=== PATIENT | male | born 1975 | race African-American/Black ===

== ENCOUNTER 2021-01-22 12:43 | Inpatient (IN) | payer OTHER ==
[2021-01-22] MEDS ORDERED: Diltiazem 125 MG/25 ML ONE (13:28)
[2021-01-22 13:37] LABS: #Basophils 0.1 10x3/uL (0.0-0.2); #Monocytes 1.4 10x3/uL (0.0-1.1); #Neutrophils 9.2 10x3/uL (1.5-8.4); %Basophils 0.4 % (0.0-2.0); %Eosinophils 0.3 % (0.0-6.0); %Lymphocytes 16.2 % (18.0-47.0); %Monocytes 10.9 % (0.0-10.0); %Neutrophils 71.8 % (40.0-75.0); Hemoglobin 14.3 g/dL (13.5-17.5); Mean Corpuscular HGB CONC 34.2 g/dL (32.0-36.0); Mean Corpuscular Hemoglobin 32.2 pg (27.0-33.0); Mean Corpuscular Volume 94.1 fl (81.2-95.1); Mean Platelet Volume 11.1 fl (7.4-10.4); Platelet Count 235 10x3/uL (150-450); RBC Distribution Width 14.2 % (11.5-14.5); Red Blood Cell (RBC) Count 4.44 10x6/uL (4.32-5.72); White Blood Cell (WBC) Count 12.8 10x3/uL (3.5-10.5)
[2021-01-22 13:46] LABS: ALT (SGPT) 186 U/L (8-55); AST (SGOT) 231 U/L (5-34); Albumin 4.1 g/dL (3.5-5.0); Alkaline Phosphatase 80 U/L (40-110); Anion Gap 17 mmol/L (10-20); BUN (Urea Nitrogen) 25 mg/dL (8.9-20.6); Bilirubin, Total 2.5 mg/dL (0.2-1.2); Calc. Creatinine Clearance 0 mL/min (70-130); Calcium 9.5 mg/dL (7.8-10.44); Carbon Dioxide 21 mmol/L (22-29); Chloride 101 mmol/L (98-107); Globulin 3.4 g/dL (2.4-3.5); Glucose 116 mg/dL (70-105); Potassium 5.2 mmol/L (3.5-5.1); Protein, Total 7.5 g/dL (6.0-8.3); Sodium 134 mmol/L (136-145)
[2021-01-22] MEDS ORDERED: Loperamide HCl 2 MG CAP PO PRN (15:33)
[2021-01-22] MEDS ORDERED: Calcium Carbonate 500 MG ChewTAB PO PRN (15:33)
[2021-01-22] MEDS ORDERED: Acetaminophen 325 MG TAB PO PRN (15:33)
[2021-01-22] MEDS ORDERED: Lidocaine Viscous Sol 2% 15 ml UD Cup ONE (16:09)
[2021-01-22] MEDS ORDERED: Mag-Al Plus 1200 MG/1200 MG/120 MG/30 ML UDCUP ONE (16:09)
[2021-01-22 18:45] LABS: SARS-CoV-2 NAA Rapid Test Not Detected (NotDetected)
[2021-01-22] MEDS ORDERED: Metoclopramide HCl 10 MG/2 ML VIAL IVP SCH (20:15)
[2021-01-22] MEDS: Metoprolol Tartrate 25 MG TAB PO SCH (20:19)
[2021-01-22] MEDS: Apixaban 5 MG TAB PO SCH (20:19)
[2021-01-22] MEDS: Famotidine/PF 20 mg/2ml Vial SLOW IVP SCH (20:19)
[2021-01-22] MEDS ORDERED: Furosemide 40 MG/4 ML VIAL SLOW IVP SCH (20:30)
[2021-01-22] MEDS: Dronedarone HCl 400 MG TAB PO SCH (20:38)
[2021-01-23] MEDS: Diltiazem 125 MG in Sodium Chloride 0.9% 100 ML IVPB SCH ×2 (02:02→11:24)
[2021-01-23 04:18] LABS: #Basophils 0.1 10x3/uL (0.0-0.2); #Eosinphils 0.1 10x3/uL (0.0-0.5); #Monocytes 1.7 10x3/uL (0.0-1.1); #Neutrophils 10.3 10x3/uL (1.5-8.4); %Basophils 0.4 % (0.0-2.0); %Eosinophils 0.4 % (0.0-6.0); %Lymphocytes 14.7 % (18.0-47.0); %Monocytes 11.6 % (0.0-10.0); %Neutrophils 72.4 % (40.0-75.0); Hemoglobin 13.8 g/dL (13.5-17.5); Mean Corpuscular HGB CONC 33.5 g/dL (32.0-36.0); Mean Corpuscular Hemoglobin 31.6 pg (27.0-33.0); Mean Corpuscular Volume 94.3 fl (81.2-95.1); Mean Platelet Volume 11.7 fl (7.4-10.4); Platelet Count 247 10x3/uL (150-450); RBC Distribution Width 14.2 % (11.5-14.5); Red Blood Cell (RBC) Count 4.37 10x6/uL (4.32-5.72); White Blood Cell (WBC) Count 14.3 10x3/uL (3.5-10.5)
[2021-01-23 04:34] LABS: ALT (SGPT) 252 U/L (8-55); AST (SGOT) 323 U/L (5-34); Albumin 3.9 g/dL (3.5-5.0); Alkaline Phosphatase 77 U/L (40-110); Anion Gap 18 mmol/L (10-20); BUN (Urea Nitrogen) 28 mg/dL (8.9-20.6); Bilirubin, Total 2.4 mg/dL (0.2-1.2); Calc. Creatinine Clearance 132 mL/min (70-130); Calcium 8.7 mg/dL (7.8-10.44); Carbon Dioxide 20 mmol/L (22-29); Chloride 100 mmol/L (98-107); Globulin 2.8 g/dL (2.4-3.5); Glucose 148 mg/dL (70-105); Lipase 25 U/L (8-78); Magnesium 1.7 mg/dL (1.6-2.6); Potassium 4.7 mmol/L (3.5-5.1); Protein, Total 6.7 g/dL (6.0-8.3); Sodium 133 mmol/L (136-145)
[2021-01-23] MEDS: Ondansetron PF 4 MG/2 ML Vial IVP PRN (04:45)
[2021-01-23] MEDS: Furosemide 40 MG/4 ML VIAL SLOW IVP SCH ×2 (07:46→18:19)
[2021-01-23] MEDS: Apixaban 5 MG TAB PO SCH ×2 (08:32→20:12)
[2021-01-23] MEDS: Aspirin 81 mg Enteric Coated Tablet PO SCH (08:32)
[2021-01-23] MEDS: Dronedarone HCl 400 MG TAB PO SCH ×2 (08:32→18:19)
[2021-01-23] MEDS: Famotidine/PF 20 mg/2ml Vial SLOW IVP SCH ×2 (08:32→20:12)
[2021-01-23] MEDS: Multivit, Therapeutic 1 TAB PO SCH (08:32)
[2021-01-23] MEDS: Metoprolol Tartrate 25 MG TAB PO SCH ×2 (08:34→20:12)
[2021-01-23] MEDS ORDERED: PROPOFOL 60 ML ONE (15:35)
[2021-01-23] MEDS ORDERED: Morphine 2 MG/ML VIAL SLOW IVP PRN (20:37)
[2021-01-23] MEDS ORDERED: Morphine 4 MG/ML VIAL SLOW IVP PRN (20:58)
[2021-01-24 03:42] LABS: #Basophils 0.1 10x3/uL (0.0-0.2); #Eosinphils 0.1 10x3/uL (0.0-0.5); #Monocytes 1.6 10x3/uL (0.0-1.1); #Neutrophils 9.6 10x3/uL (1.5-8.4); %Basophils 0.4 % (0.0-2.0); %Eosinophils 0.7 % (0.0-6.0); %Monocytes 12.1 % (0.0-10.0); %Neutrophils 71.4 % (40.0-75.0); Hemoglobin 13.6 g/dL (13.5-17.5); Mean Corpuscular HGB CONC 34.7 g/dL (32.0-36.0); Mean Corpuscular Volume 92.2 fl (81.2-95.1); Mean Platelet Volume 10.7 fl (7.4-10.4); Platelet Count 221 10x3/uL (150-450); RBC Distribution Width 14.1 % (11.5-14.5); Red Blood Cell (RBC) Count 4.25 10x6/uL (4.32-5.72); White Blood Cell (WBC) Count 13.5 10x3/uL (3.5-10.5)
[2021-01-24 03:55] LABS: Anion Gap 17 mmol/L (10-20); BUN (Urea Nitrogen) 32 mg/dL (8.9-20.6); Calc. Creatinine Clearance 133 mL/min (70-130); Calcium 8.5 mg/dL (7.8-10.44); Carbon Dioxide 22 mmol/L (22-29); Chloride 97 mmol/L (98-107); Glucose 116 mg/dL (70-105); Magnesium 1.9 mg/dL (1.6-2.6); Potassium 4.1 mmol/L (3.5-5.1); Sodium 132 mmol/L (136-145)
[2021-01-24] MEDS: Furosemide 40 MG/4 ML VIAL SLOW IVP SCH ×2 (05:03→12:47)
[2021-01-24] MEDS: Famotidine/PF 20 mg/2ml Vial SLOW IVP SCH ×2 (08:00→20:11)
[2021-01-24] MEDS: Apixaban 5 MG TAB PO SCH ×2 (08:02→20:11)
[2021-01-24] MEDS: Aspirin 81 mg Enteric Coated Tablet PO SCH (08:02)
[2021-01-24] MEDS: Metoprolol Tartrate 25 MG TAB PO SCH ×2 (08:02→20:11)
[2021-01-24] MEDS: Dronedarone HCl 400 MG TAB PO SCH ×2 (08:02→16:23)
[2021-01-24] MEDS: Multivit, Therapeutic 1 TAB PO SCH (08:02)
[2021-01-24] MEDS ORDERED: FLU VACC QS2021-22(6MOS UP)/PF 60 MCG/0.5 ML SYRINGE IM ONE (09:00)
[2021-01-24] MEDS ORDERED: Digoxin 0.25 MG TAB PO SCH (13:45)
[2021-01-24] MEDS: Digoxin 0.5 MG/2 ML AMP SLOW IVP SCH ×3 (13:57→15:56)
[2021-01-24] MEDS: Digoxin 0.25 MG TAB PO SCH ×2 (13:58→13:59)
[2021-01-24] MEDS: Ondansetron PF 4 MG/2 ML Vial IVP PRN (15:56)
[2021-01-25 05:10] LABS: #Eosinphils 0.3 10x3/uL (0.0-0.5); #Monocytes 1.7 10x3/uL (0.0-1.1); #Neutrophils 7.2 10x3/uL (1.5-8.4); %Basophils 0.4 % (0.0-2.0); %Eosinophils 2.9 % (0.0-6.0); %Lymphocytes 16.1 % (18.0-47.0); Hemoglobin 13.6 g/dL (13.5-17.5); Mean Corpuscular HGB CONC 33.4 g/dL (32.0-36.0); Mean Corpuscular Hemoglobin 31.9 pg (27.0-33.0); Mean Corpuscular Volume 95.5 fl (81.2-95.1); Mean Platelet Volume 11.2 fl (7.4-10.4); Platelet Count 216 10x3/uL (150-450); RBC Distribution Width 14.3 % (11.5-14.5); Red Blood Cell (RBC) Count 4.26 10x6/uL (4.32-5.72); White Blood Cell (WBC) Count 11.1 10x3/uL (3.5-10.5)
[2021-01-25 05:31] LABS: ALT (SGPT) 314 U/L (8-55); AST (SGOT) 195 U/L (5-34); Albumin 3.7 g/dL (3.5-5.0); Alkaline Phosphatase 67 U/L (40-110); Anion Gap 19 mmol/L (10-20); BUN (Urea Nitrogen) 22 mg/dL (8.9-20.6); Bilirubin, Total 2.8 mg/dL (0.2-1.2); Calc. Creatinine Clearance 158 mL/min (70-130); Calcium 8.4 mg/dL (7.8-10.44); Carbon Dioxide 23 mmol/L (22-29); Chloride 96 mmol/L (98-107); Globulin 2.9 g/dL (2.4-3.5); Glucose 78 mg/dL (70-105); Magnesium 2.1 mg/dL (1.6-2.6); Protein, Total 6.6 g/dL (6.0-8.3); Sodium 134 mmol/L (136-145)
[2021-01-25 05:40] VITALS: BMI 32.9
[2021-01-25] MEDS: Furosemide 40 MG/4 ML VIAL SLOW IVP SCH ×2 (05:55→12:49)
[2021-01-25] MEDS: Famotidine/PF 20 mg/2ml Vial SLOW IVP SCH (08:08)
[2021-01-25] MEDS: Dronedarone HCl 400 MG TAB PO SCH (08:08)
[2021-01-25] MEDS: Multivit, Therapeutic 1 TAB PO SCH (08:09)
[2021-01-25] MEDS: Aspirin 81 mg Enteric Coated Tablet PO SCH (08:09)
[2021-01-25] MEDS: Apixaban 5 MG TAB PO SCH (08:09)
[2021-01-25] MEDS: Metoprolol Tartrate 25 MG TAB PO SCH (08:09)
[2021-01-25] MEDS: Digoxin 0.25 MG TAB PO SCH (08:09)
[2021-01-25 12:47] VITALS: TEMP 98.3
[2021-01-25 16:20] VITALS: BP 101/72
== END 2021-01-25 17:11 | disposition home or self-care (01) | DRG 308 ==
LOC: SUATTDRO 12:43 → CSHERS 12:43 → CSHICU 19:22
PROVIDERS: ADMIT Student in an Organized Health Care Education/Training Program; ATTEND Student in an Organized Health Care Education/Training Program
PROC: B245ZZ4 Ultrasonography of Left Heart, Transesophageal (ICD-10-PCS; principal; 2021-01-23)
PROC: 5A2204Z Restoration of Cardiac Rhythm, Single (ICD-10-PCS; 2021-01-23)
DX: I48.0 Paroxysmal atrial fibrillation (principal); I50.33 Acute on chronic diastolic (congestive) heart failure; N17.9 Acute kidney failure, unspecified; E78.5 Hyperlipidemia, unspecified; I34.0 Nonrheumatic mitral (valve) insufficiency; R74.01 Elevation of levels of liver transaminase levels; E87.5 Hyperkalemia; Z20.822 Contact with and (suspected) exposure to COVID-19; F19.10 Other psychoactive substance abuse, uncomplicated; F17.210 Nicotine dependence, cigarettes, uncomplicated; I34.1 Nonrheumatic mitral (valve) prolapse; I11.0 Hypertensive heart disease with heart failure
CPT/HCPCS: 36415; 71045; 76705; 80048; 80053; 83690; 83735; 83880; 84484; 85025; 92960; 93005; 93010; 93312; 94760; 96365; 96366; J1160; J1940; J2270; J2405; J2704; J2765; J3490; S0028; U0002

== ENCOUNTER 2021-02-09 10:22 | Inpatient (IN) | payer OTHER ==
[2021-02-09 11:12] LABS: #Basophils 0.1 10x3/uL (0.0-0.2); #Eosinphils 0.2 10x3/uL (0.0-0.5); #Monocytes 1.3 10x3/uL (0.0-1.1); #Neutrophils 7.6 10x3/uL (1.5-8.4); %Basophils 0.5 % (0.0-2.0); %Eosinophils 1.9 % (0.0-6.0); %Lymphocytes 15.8 % (18.0-47.0); %Monocytes 11.8 % (0.0-10.0); %Neutrophils 69.6 % (40.0-75.0); Hemoglobin 13.3 g/dL (13.5-17.5); Mean Corpuscular HGB CONC 34.1 g/dL (32.0-36.0); Mean Corpuscular Hemoglobin 32.2 pg (27.0-33.0); Mean Corpuscular Volume 94.4 fl (81.2-95.1); Mean Platelet Volume 10.7 fl (7.4-10.4); Platelet Count 256 10x3/uL (150-450); RBC Distribution Width 14.9 % (11.5-14.5); Red Blood Cell (RBC) Count 4.13 10x6/uL (4.32-5.72); White Blood Cell (WBC) Count 10.9 10x3/uL (3.5-10.5)
[2021-02-09] MEDS ORDERED: Metoprolol Tartrate 25 MG TAB ONE (11:15)
[2021-02-09] MEDS ORDERED: Metoprolol Tartrate 5 MG/5 ML VIAL ONE (11:15)
[2021-02-09 11:27] LABS: ALT (SGPT) 24 U/L (8-55); AST (SGOT) 21 U/L (5-34); Albumin 3.8 g/dL (3.5-5.0); Alkaline Phosphatase 68 U/L (40-110); Anion Gap 15 mmol/L (10-20); BUN (Urea Nitrogen) 14 mg/dL (8.9-20.6); Calc. Creatinine Clearance 0 mL/min (70-130); Calcium 9.4 mg/dL (7.8-10.44); Carbon Dioxide 22 mmol/L (22-29); Chloride 103 mmol/L (98-107); Digoxin 0.36 ng/mL (0.8-2.0); Globulin 3.4 g/dL (2.4-3.5); Glucose 111 mg/dL (70-105); Lipase 31 U/L (8-78); Protein, Total 7.2 g/dL (6.0-8.3); Sodium 136 mmol/L (136-145)
[2021-02-09] MEDS ORDERED: Diltiazem 125 MG/25 ML ONE (13:36)
[2021-02-09] MEDS ORDERED: Ondansetron PF 4 MG/2 ML Vial ONE (14:29)
[2021-02-09] MEDS ORDERED: Ondansetron ODT 4 MG TAB PO PRN (15:01)
[2021-02-10] MEDS: Diltiazem 125 MG in Sodium Chloride 0.9% 100 ML IVPB SCH (04:14)
[2021-02-10 04:31] LABS: #Basophils 0.1 10x3/uL (0.0-0.2); #Eosinphils 0.2 10x3/uL (0.0-0.5); #Monocytes 1.2 10x3/uL (0.0-1.1); %Basophils 0.6 % (0.0-2.0); %Eosinophils 1.7 % (0.0-6.0); %Lymphocytes 18.1 % (18.0-47.0); %Monocytes 10.6 % (0.0-10.0); %Neutrophils 68.4 % (40.0-75.0); Hemoglobin 12.9 g/dL (13.5-17.5); Mean Corpuscular HGB CONC 33.2 g/dL (32.0-36.0); Mean Corpuscular Hemoglobin 32.1 pg (27.0-33.0); Mean Corpuscular Volume 96.8 fl (81.2-95.1); Mean Platelet Volume 11.2 fl (7.4-10.4); Platelet Count 240 10x3/uL (150-450); RBC Distribution Width 15.1 % (11.5-14.5); Red Blood Cell (RBC) Count 4.02 10x6/uL (4.32-5.72); White Blood Cell (WBC) Count 11.7 10x3/uL (3.5-10.5)
[2021-02-10 04:54] LABS: Anion Gap 19 mmol/L (10-20); BUN (Urea Nitrogen) 18 mg/dL (8.9-20.6); Calc. Creatinine Clearance 192 mL/min (70-130); Carbon Dioxide 19 mmol/L (22-29); Chloride 103 mmol/L (98-107); Glucose 89 mg/dL (70-105); Magnesium 1.8 mg/dL (1.6-2.6); Potassium 4.7 mmol/L (3.5-5.1); Sodium 136 mmol/L (136-145)
[2021-02-10] MEDS: Furosemide 40 MG/4 ML VIAL SLOW IVP SCH ×2 (06:32→14:49)
[2021-02-10] MEDS ORDERED: Magnesium 2 GM/50 ML 2 GM in Premix Bag 1 BAG IVPB SCH (12:00)
[2021-02-10 13:53] LABS: SARS-CoV-2 PCR by NAA Not Detected (NotDetected)
[2021-02-10] MEDS: Metoprolol Tartrate 25 MG TAB PO SCH (22:01)
[2021-02-10] MEDS: Apixaban 5 MG TAB PO SCH (22:01)
[2021-02-11] MEDS: Diltiazem 125 MG in Sodium Chloride 0.9% 100 ML IVPB SCH (00:11)
[2021-02-11] MEDS ORDERED: Acetaminophen 325 MG TAB PO SCH (00:45)
[2021-02-11 05:20] LABS: #Basophils 0.1 10x3/uL (0.0-0.2); #Eosinphils 0.3 10x3/uL (0.0-0.5); #Monocytes 1.3 10x3/uL (0.0-1.1); #Neutrophils 7.9 10x3/uL (1.5-8.4); %Basophils 0.5 % (0.0-2.0); %Eosinophils 2.8 % (0.0-6.0); %Lymphocytes 13.7 % (18.0-47.0); %Monocytes 11.6 % (0.0-10.0); Mean Corpuscular HGB CONC 34.1 g/dL (32.0-36.0); Mean Corpuscular Hemoglobin 32.3 pg (27.0-33.0); Mean Corpuscular Volume 94.5 fl (81.2-95.1); Mean Platelet Volume 10.7 fl (7.4-10.4); Platelet Count 238 10x3/uL (150-450); RBC Distribution Width 14.7 % (11.5-14.5); Red Blood Cell (RBC) Count 4.03 10x6/uL (4.32-5.72); White Blood Cell (WBC) Count 11.1 10x3/uL (3.5-10.5)
[2021-02-11 05:21] VITALS: BMI 35.2
[2021-02-11 05:29] LABS: Anion Gap 16 mmol/L (10-20); BUN (Urea Nitrogen) 13 mg/dL (8.9-20.6); Calc. Creatinine Clearance 213 mL/min (70-130); Calcium 8.7 mg/dL (7.8-10.44); Carbon Dioxide 22 mmol/L (22-29); Chloride 102 mmol/L (98-107); Glucose 105 mg/dL (70-105); Potassium 3.6 mmol/L (3.5-5.1); Sodium 136 mmol/L (136-145)
[2021-02-11] MEDS: Furosemide 40 MG/4 ML VIAL SLOW IVP SCH ×2 (06:01→13:35)
[2021-02-11] MEDS ORDERED: Metoprolol Tartrate 5 MG/5 ML VIAL IVP SCH (08:00)
[2021-02-11] MEDS ORDERED: Magnesium 2 GM/50 ML 2 GM in Premix Bag 1 BAG IVPB SCH (08:00)
[2021-02-11] MEDS ORDERED: Potassium Chloride 20 MEQ TAB PO SCH (08:00)
[2021-02-11] MEDS ORDERED: Diltiazem 125 MG in Sodium Chloride 0.9% 100 ML IVPB SCH (08:15)
[2021-02-11] MEDS: Metoprolol Tartrate 25 MG TAB PO SCH (08:30)
[2021-02-11] MEDS: Apixaban 5 MG TAB PO SCH ×2 (08:30→20:33)
[2021-02-11] MEDS ORDERED: Digoxin 0.25 MG TAB PO SCH (09:00)
[2021-02-11] MEDS: Albuterol Sulfate 1.25 MG/3 ML NEB EZPAP PRN ×2 (11:36→22:15)
[2021-02-11] MEDS: Ondansetron PF 4 MG/2 ML Vial IVP PRN (12:35)
[2021-02-11] MEDS: Metoprolol Tartrate 50 MG TAB PO SCH (20:33)
[2021-02-12] MEDS ORDERED: Calcium Carbonate 500 MG ChewTAB PO PRN (01:21)
[2021-02-12 04:50] LABS: Anion Gap 15 mmol/L (10-20); BUN (Urea Nitrogen) 17 mg/dL (8.9-20.6); Calc. Creatinine Clearance 153 mL/min (70-130); Calcium 8.9 mg/dL (7.8-10.44); Carbon Dioxide 25 mmol/L (22-29); Chloride 99 mmol/L (98-107); Glucose 103 mg/dL (70-105); Potassium 4.2 mmol/L (3.5-5.1); Sodium 135 mmol/L (136-145)
[2021-02-12] MEDS ORDERED: Potassium Chloride 20 MEQ TAB PO SCH (08:00)
[2021-02-12] MEDS ORDERED: Furosemide 20 MG TAB PO SCH (09:00)
[2021-02-12] MEDS: Metoprolol Tartrate 50 MG TAB PO SCH (09:19)
[2021-02-12] MEDS: Apixaban 5 MG TAB PO SCH (09:20)
[2021-02-12 11:40] VITALS: BP 126/64; TEMP 97
[2021-02-12] MEDS: Ondansetron PF 4 MG/2 ML Vial IVP PRN (13:13)
[2021-02-12] MEDS: Albuterol Sulfate 1.25 MG/3 ML NEB EZPAP PRN (15:30)
== END 2021-02-12 17:20 | disposition home or self-care (01) | DRG 308 ==
LOC: CSHERS 10:22 → SUATTDRO 10:22 → CSHTELE 17:38 → OBSVTOIN 02-11 08:46
PROVIDERS: ADMIT Internal Medicine; ATTEND Internal Medicine
DX: I48.19 Other persistent atrial fibrillation (principal); I50.43 Acute on chronic combined systolic (congestive) and diastolic (congestive) heart failure; F17.210 Nicotine dependence, cigarettes, uncomplicated; I34.0 Nonrheumatic mitral (valve) insufficiency; F10.10 Alcohol abuse, uncomplicated; F19.10 Other psychoactive substance abuse, uncomplicated; Z20.822 Contact with and (suspected) exposure to COVID-19; Z79.82 Long term (current) use of aspirin; Z79.899 Other long term (current) drug therapy; Z79.01 Long term (current) use of anticoagulants
CPT/HCPCS: 36415; 71045; 80048; 80053; 80162; 83690; 83735; 83880; 84443; 84484; 85025; 85379; 93005; 94640; 96366; 96375; 96376; 97139; G0378; J1940; J2405; J3475; J3490; U0003; U0005

== ENCOUNTER 2021-02-20 10:08 | Inpatient (IN) | payer OTHER, SELFPAY ==
[2021-02-20 10:46] LABS: #Basophils 0.1 10x3/uL (0.0-0.2); #Eosinphils 0.2 10x3/uL (0.0-0.5); #Monocytes 1.3 10x3/uL (0.0-1.1); #Neutrophils 7.2 10x3/uL (1.5-8.4); %Basophils 0.6 % (0.0-2.0); %Eosinophils 1.9 % (0.0-6.0); %Lymphocytes 16.3 % (18.0-47.0); %Monocytes 12.1 % (0.0-10.0); %Neutrophils 68.7 % (40.0-75.0); Hemoglobin 13.7 g/dL (13.5-17.5); Mean Corpuscular Hemoglobin 32.4 pg (27.0-33.0); Mean Corpuscular Volume 95.3 fl (81.2-95.1); Mean Platelet Volume 10.3 fl (7.4-10.4); Platelet Count 291 10x3/uL (150-450); RBC Distribution Width 14.8 % (11.5-14.5); Red Blood Cell (RBC) Count 4.23 10x6/uL (4.32-5.72); White Blood Cell (WBC) Count 10.5 10x3/uL (3.5-10.5)
[2021-02-20 10:59] LABS: INR-International Normal Ratio 1.2; PTT 28.7 sec (22.0-33.0); Prothrombin Time 13.1 sec (9.5-12.1)
[2021-02-20 11:05] LABS: ALT (SGPT) 18 U/L (8-55); AST (SGOT) 24 U/L (5-34); Albumin 3.8 g/dL (3.5-5.0); Alkaline Phosphatase 71 U/L (40-110); Anion Gap 14 mmol/L (10-20); BUN (Urea Nitrogen) 14 mg/dL (8.9-20.6); Calc. Creatinine Clearance 0 mL/min (70-130); Calcium 9.3 mg/dL (7.8-10.44); Carbon Dioxide 23 mmol/L (22-29); Chloride 104 mmol/L (98-107); Globulin 3.4 g/dL (2.4-3.5); Glucose 116 mg/dL (70-105); Potassium 4.4 mmol/L (3.5-5.1); Protein, Total 7.2 g/dL (6.0-8.3); Sodium 137 mmol/L (136-145)
[2021-02-20] MEDS ORDERED: Nitroglycerin 0.4 MG TAB (25 Tab Bottle) SL PRN ×2 (12:36→12:41)
[2021-02-20] MEDS ORDERED: Acetaminophen 325 MG TAB PO PRN (12:38)
[2021-02-20] MEDS ORDERED: Guaifenesin DM 100-10/5 ML UDCUP PO PRN (12:38)
[2021-02-20] MEDS ORDERED: Ondansetron PF 4 MG/2 ML Vial ONE (12:38)
[2021-02-20] MEDS ORDERED: Nicotine 14 MG PATCH TD SCH ×2 (13:00→16:00)
[2021-02-20 14:13] LABS: Digoxin 0.27 ng/mL (0.8-2.0)
[2021-02-20 15:07] VITALS: BMI 33.6
[2021-02-20 18:11] LABS: Troponin I 0.015 ng/mL (< 0.028)
[2021-02-20] MEDS: Nicotine 14 MG PATCH TD SCH (18:48)
[2021-02-20] MEDS: Apixaban 5 MG TAB PO SCH (20:22)
[2021-02-20] MEDS ORDERED: Metoprolol Tartrate 25 MG TAB PO SCH (21:00)
[2021-02-21 04:39] LABS: #Basophils 0.1 10x3/uL (0.0-0.2); #Eosinphils 0.3 10x3/uL (0.0-0.5); #Neutrophils 6.4 10x3/uL (1.5-8.4); %Basophils 0.5 % (0.0-2.0); %Eosinophils 2.9 % (0.0-6.0); %Lymphocytes 18.1 % (18.0-47.0); %Monocytes 10.8 % (0.0-10.0); %Neutrophils 67.4 % (40.0-75.0); Hemoglobin 12.5 g/dL (13.5-17.5); Mean Corpuscular HGB CONC 33.7 g/dL (32.0-36.0); Mean Corpuscular Hemoglobin 32.1 pg (27.0-33.0); Mean Corpuscular Volume 95.1 fl (81.2-95.1); Mean Platelet Volume 10.5 fl (7.4-10.4); Platelet Count 256 10x3/uL (150-450); RBC Distribution Width 14.7 % (11.5-14.5); White Blood Cell (WBC) Count 9.5 10x3/uL (3.5-10.5)
[2021-02-21 05:02] LABS: Anion Gap 15 mmol/L (10-20); BUN (Urea Nitrogen) 16 mg/dL (8.9-20.6); Calc. Creatinine Clearance 185 mL/min (70-130); Calcium 8.9 mg/dL (7.8-10.44); Carbon Dioxide 21 mmol/L (22-29); Chloride 105 mmol/L (98-107); Glucose 103 mg/dL (70-105); Sodium 137 mmol/L (136-145)
[2021-02-21] MEDS: Apixaban 5 MG TAB PO SCH ×2 (08:26→21:54)
[2021-02-21] MEDS: Aspirin Chewable 81 MG TAB PO SCH (08:26)
[2021-02-21] MEDS: Metoprolol Tartrate 25 MG TAB PO SCH ×2 (08:26→21:54)
[2021-02-21] MEDS ORDERED: Furosemide 40 MG TAB PO SCH ×2 (09:00)
[2021-02-21 16:17] LABS: SARS-CoV-2 NAA Rapid Test Not Detected (NotDetected)
[2021-02-21] MEDS: Nicotine 14 MG PATCH TD SCH (17:30)
[2021-02-22] MEDS: Bisacodyl 5 MG TAB PO PRN ×2 (00:36→18:37)
[2021-02-22] MEDS: Ondansetron ODT 4 MG TAB PO PRN ×2 (03:18→14:07)
[2021-02-22 08:26] LABS: Anion Gap 14 mmol/L (10-20); BUN (Urea Nitrogen) 16 mg/dL (8.9-20.6); Calc. Creatinine Clearance 202 mL/min (70-130); Calcium 8.8 mg/dL (7.8-10.44); Carbon Dioxide 21 mmol/L (22-29); Chloride 105 mmol/L (98-107); Glucose 103 mg/dL (70-105); Sodium 136 mmol/L (136-145)
[2021-02-22 08:30] LABS: #Eosinphils 0.2 10x3/uL (0.0-0.5); #Monocytes 1.1 10x3/uL (0.0-1.1); #Neutrophils 6.3 10x3/uL (1.5-8.4); %Basophils 0.3 % (0.0-2.0); %Eosinophils 2.4 % (0.0-6.0); %Monocytes 11.8 % (0.0-10.0); %Neutrophils 69.1 % (40.0-75.0); Hemoglobin 12.4 g/dL (13.5-17.5); Mean Corpuscular HGB CONC 32.9 g/dL (32.0-36.0); Mean Corpuscular Hemoglobin 31.9 pg (27.0-33.0); Mean Corpuscular Volume 96.9 fl (81.2-95.1); Mean Platelet Volume 10.4 fl (7.4-10.4); Platelet Count 234 10x3/uL (150-450); RBC Distribution Width 14.9 % (11.5-14.5); Red Blood Cell (RBC) Count 3.89 10x6/uL (4.32-5.72); White Blood Cell (WBC) Count 9.1 10x3/uL (3.5-10.5)
[2021-02-22] MEDS ORDERED: Furosemide 20 MG/2 ML VIAL SLOW IVP SCH (09:00)
[2021-02-22] MEDS: Aspirin Chewable 81 MG TAB PO SCH (09:50)
[2021-02-22] MEDS: Apixaban 5 MG TAB PO SCH (09:50)
[2021-02-22] MEDS: Metoprolol Tartrate 25 MG TAB PO SCH ×2 (09:52→20:45)
[2021-02-22] MEDS ORDERED: Communication Order-Pharmacy FS SCH (12:15)
[2021-02-22] MEDS ORDERED: Digoxin 0.5 MG/2 ML AMP SLOW IVP SCH (13:00)
[2021-02-22] MEDS ORDERED: Furosemide 40 MG/4 ML VIAL SLOW IVP SCH (14:00)
[2021-02-22] MEDS: Furosemide 20 MG/2 ML VIAL SLOW IVP SCH (14:07)
[2021-02-22] MEDS ORDERED: Ondansetron PF 4 MG/2 ML Vial IVP PRN (15:07)
[2021-02-22] MEDS: Nicotine 14 MG PATCH TD SCH (17:54)
[2021-02-23 04:23] LABS: INR-International Normal Ratio 1.3; Prothrombin Time 14.7 sec (9.5-12.1)
[2021-02-23 04:47] LABS: ALT (SGPT) 15 U/L (8-55); AST (SGOT) 19 U/L (5-34); Albumin 3.5 g/dL (3.5-5.0); Alkaline Phosphatase 57 U/L (40-110); Anion Gap 14 mmol/L (10-20); BUN (Urea Nitrogen) 18 mg/dL (8.9-20.6); Bilirubin, Total 2.4 mg/dL (0.2-1.2); Calc. Creatinine Clearance 174 mL/min (70-130); Calcium 8.8 mg/dL (7.8-10.44); Carbon Dioxide 22 mmol/L (22-29); Chloride 103 mmol/L (98-107); Globulin 3.1 g/dL (2.4-3.5); Glucose 85 mg/dL (70-105); Potassium 3.9 mmol/L (3.5-5.1); Protein, Total 6.6 g/dL (6.0-8.3); Sodium 135 mmol/L (136-145)
[2021-02-23 05:45] LABS: #Basophils 0.1 10x3/uL (0.0-0.2); #Eosinphils 0.2 10x3/uL (0.0-0.5); #Monocytes 1.1 10x3/uL (0.0-1.1); #Neutrophils 6.8 10x3/uL (1.5-8.4); %Basophils 0.5 % (0.0-2.0); %Eosinophils 2.3 % (0.0-6.0); %Lymphocytes 16.8 % (18.0-47.0); %Monocytes 11.2 % (0.0-10.0); %Neutrophils 68.9 % (40.0-75.0); Hemoglobin 12.4 g/dL (13.5-17.5); Mean Corpuscular HGB CONC 33.4 g/dL (32.0-36.0); Mean Corpuscular Volume 95.9 fl (81.2-95.1); Mean Platelet Volume 10.5 fl (7.4-10.4); Platelet Count 235 10x3/uL (150-450); RBC Distribution Width 14.7 % (11.5-14.5); Red Blood Cell (RBC) Count 3.87 10x6/uL (4.32-5.72); White Blood Cell (WBC) Count 9.9 10x3/uL (3.5-10.5)
[2021-02-23] MEDS: Furosemide 20 MG/2 ML VIAL SLOW IVP SCH ×2 (06:00→14:23)
[2021-02-23] MEDS: Metoprolol Tartrate 25 MG TAB PO SCH (06:35)
[2021-02-23] MEDS: Aspirin Chewable 81 MG TAB PO SCH (06:35)
[2021-02-23] MEDS ORDERED: Nitroglycerin 50 MG/250 ML BOT 250 ML ONE (07:46)
[2021-02-23] MEDS ORDERED: Heparin 10,000 UNITS/ 10 ML VIAL ONE (07:46)
[2021-02-23] MEDS ORDERED: Adenosine 6 MG/2 ML VIAL ONE (07:47)
[2021-02-23] MEDS ORDERED: Verapamil 5 MG/2 ML VIAL ONE (08:01)
[2021-02-23] MEDS ORDERED: Lidocaine 1% PF 5 ML VIAL ONE (08:09)
[2021-02-23] MEDS ORDERED: Fentanyl 100 MCG/2 ML VIAL ONE (08:31)
[2021-02-23] MEDS ORDERED: Midazolam HCl 2 mg/2 ml Vial ONE ×2 (08:31→08:55)
[2021-02-23 13:03] VITALS: TEMP 96.3
[2021-02-23 16:31] VITALS: BP 135/111
== END 2021-02-23 16:44 | disposition short-term general hospital (02) | DRG 286 ==
LOC: CSHERS 10:08 → CSHTELE 14:21 → OBSVTOIN 02-21 12:08
PROVIDERS: ADMIT Internal Medicine; ATTEND Internal Medicine
PROC: 4A023N7 Measurement of Cardiac Sampling and Pressure, Left Heart, Percutaneous Approach (ICD-10-PCS; principal; 2021-02-23)
PROC: B2111ZZ Fluoroscopy of Multiple Coronary Arteries using Low Osmolar Contrast (ICD-10-PCS; 2021-02-23)
PROC: B2151ZZ Fluoroscopy of Left Heart using Low Osmolar Contrast (ICD-10-PCS; 2021-02-23)
DX: I48.11 Longstanding persistent atrial fibrillation (principal); I50.33 Acute on chronic diastolic (congestive) heart failure; Z20.822 Contact with and (suspected) exposure to COVID-19; I25.10 Atherosclerotic heart disease of native coronary artery without angina pectoris; I34.1 Nonrheumatic mitral (valve) prolapse; J45.909 Unspecified asthma, uncomplicated; I11.0 Hypertensive heart disease with heart failure; F10.11 Alcohol abuse, in remission; E78.5 Hyperlipidemia, unspecified; I34.0 Nonrheumatic mitral (valve) insufficiency; Z79.01 Long term (current) use of anticoagulants; Z79.899 Other long term (current) drug therapy; Z87.891 Personal history of nicotine dependence
CPT/HCPCS: 36415; 71045; 80048; 80053; 80162; 83735; 83880; 84443; 84484; 85025; 85610; 85730; 93005; 93010; 93458; 94760; 99152; G0378; J0153; J1160; J1644; J1940; J2250; J2405; J3010; Q0162; U0002

== ENCOUNTER 2022-05-04 11:11 | Outpatient (CLI) | payer SELFPAY | END 2022-05-04 11:12 | disposition home or self-care (01) | LOC: CSHRAD 11:11 | PROVIDERS: ATTEND Nurse Practitioner | DX: R07.9 Chest pain, unspecified (principal) | CPT/HCPCS: 71046 ==

== ENCOUNTER 2022-11-15 11:06 | Emergency (ER) | payer OTHER ==
[2022-11-15 11:44] LABS: #Basophils 0.1 10x3/uL (0.0-0.2); #Eosinphils 0.2 10x3/uL (0.0-0.5); #Neutrophils 6.6 10x3/uL (1.5-8.4); %Basophils 0.6 % (0.0-2.0); %Eosinophils 2.1 % (0.0-6.0); %Lymphocytes 22.9 % (18.0-47.0); %Monocytes 10.2 % (0.0-10.0); Hematocrit 45.2 % (38.8-50.0); Hemoglobin 15.5 g/dL (13.5-17.5); Mean Corpuscular HGB CONC 34.3 g/dL (32.0-36.0); Mean Corpuscular Hemoglobin 32.1 pg (27.0-33.0); Mean Corpuscular Volume 93.6 fl (81.2-95.1); Mean Platelet Volume 9.9 fl (7.4-10.4); Platelet Count 305 10x3/uL (150-450); RBC Distribution Width 14.1 % (11.5-14.5); Red Blood Cell (RBC) Count 4.83 10x6/uL (4.32-5.72); White Blood Cell (WBC) Count 10.2 10x3/uL (3.5-10.5)
[2022-11-15 12:33] LABS: Troponin I Less than 0.010 ng/mL (< 0.028)
[2022-11-15 12:34] LABS: ALT (SGPT) 17 U/L (8-55); AST (SGOT) 27 U/L (5-34); Albumin 4.2 g/dL (3.5-5.0); Alkaline Phosphatase 89 U/L (40-110); Anion Gap 14 mmol/L (10-20); BUN (Urea Nitrogen) 12 mg/dL (8.9-20.6); Bilirubin, Total 0.8 mg/dL (0.2-1.2); Calc. Creatinine Clearance 0 mL/min (70-130); Calcium 9.3 mg/dL (7.8-10.44); Carbon Dioxide 28 mmol/L (22-29); Chloride 102 mmol/L (98-107); Estimated GFR 78; Globulin 3.2 g/dL (2.4-3.5); Glucose 110 mg/dL (70-105); Magnesium 1.9 mg/dL (1.6-2.6); Potassium 4.6 mmol/L (3.5-5.1); Protein, Total 7.4 g/dL (6.0-8.3); Sodium 139 mmol/L (136-145)
[2022-11-15] MEDS ORDERED: Meclizine HCl 25 MG TAB ONE (13:25)
== END 2022-11-15 14:50 | disposition home or self-care (01) ==
LOC: CSHERS 11:06
DX: R42 Dizziness and giddiness (principal); J45.909 Unspecified asthma, uncomplicated; Z87.891 Personal history of nicotine dependence
CPT/HCPCS: 70450; 71045; 80053; 83735; 83880; 84484; 85025; 93005

== ENCOUNTER 2023-03-15 08:27 | Emergency (ER) | payer SELFPAY ==
[2023-03-15] MEDS ORDERED: Meclizine HCl 25 MG TAB ONE (09:03)
[2023-03-15 09:15] LABS: ALT (SGPT) 14 U/L (8-55); AST (SGOT) 24 U/L (5-34); Albumin 3.9 g/dL (3.5-5.0); Alkaline Phosphatase 79 U/L (40-110); Anion Gap 12 mmol/L (10-20); BUN (Urea Nitrogen) 8 mg/dL (8.9-20.6); Bilirubin, Total 0.7 mg/dL (0.2-1.2); Calc. Creatinine Clearance 0 mL/min (70-130); Calcium 9.2 mg/dL (7.8-10.44); Carbon Dioxide 25 mmol/L (22-29); Chloride 101 mmol/L (98-107); Estimated GFR 108; Globulin 3.7 g/dL (2.4-3.5); Glucose 108 mg/dL (70-105); Potassium 4.3 mmol/L (3.5-5.1); Protein, Total 7.6 g/dL (6.0-8.3); Sodium 134 mmol/L (136-145)
[2023-03-15 09:19] LABS: Troponin I Less than 0.010 ng/mL (< 0.028)
[2023-03-15 09:20] LABS: Hematocrit 45.5 % (38.8-50.0); Hemoglobin 15.7 g/dL (13.5-17.5); MDiff Complete? YES; Mean Corpuscular HGB CONC 34.5 g/dL (32.0-36.0); Mean Corpuscular Hemoglobin 31.8 pg (27.0-33.0); Mean Corpuscular Volume 92.1 fl (81.2-95.1); Mean Platelet Volume 10.6 fl (7.4-10.4); Platelet Count 253 10x3/uL (150-450); RBC Distribution Width 13.5 % (11.5-14.5); Red Blood Cell (RBC) Count 4.94 10x6/uL (4.32-5.72); White Blood Cell (WBC) Count 7.7 10x3/uL (3.5-10.5)
[2023-03-15 10:04] LABS: Bilirubin Neg (Negative); Blood, Urine Negative (Negative); Clarity Clear (Clear); Glucose, Urine (Dipstick) Normal (Negative); Ketone, Urine Negative (Negative); Leukocyte Negative (Negative); Nitrite Negative (Negative); Protein, Urine (Dipstick) Negative (Neg-Trace); Urobilinogen Normal mg/dL (Less than 2)
[2023-03-15 10:28] LABS: Band 6 % (5-11); Eosinophils 1 % (0-10); Lymphocytes 39 % (21-51); Metamyelocyte 1 % (0-0); Monocytes 9 % (0-10); Neutrophil 37 % (42-75); Reactive Lymphocytes 7 % (0-10)
[2023-03-15 10:31] LABS: Large Platelets SLIGHT (None Seen); RBC Morph Comment Within Normal Limits
[2023-03-15 10:32] LABS: Platelet Adequacy Comment Appears Adequate
[2023-03-15 10:44] LABS: Bacteria/HPF None Seen HPF (None Seen); CAUTI Indications for Culture Pelvic or flank pain; RBC/HPF None Seen HPF (0-3); Squamous Epithelial 0-3 HPF (0-3); WBC/HPF None Seen HPF (0-3)
[2023-03-15 10:45] LABS: Urine Culture Reflex No No
== END 2023-03-15 10:52 | disposition home or self-care (01) ==
LOC: CSHERS 08:27
DX: R42 Dizziness and giddiness (principal); Z87.891 Personal history of nicotine dependence
CPT/HCPCS: 71045; 80053; 81001; 84484; 85025; 93005